=== PATIENT | male | born 1950 | race Caucasian/White ===

== ENCOUNTER 2018-08-17 14:04 | Day surgery (SDC) | payer MEDICARE, OTHER, SELFPAY ==
[2018-08-17] MEDS: LACTATED RINGERS 1,000 ML 200 ML IV (14:55)
[2018-08-17 15:02] VITALS: BP 135/81; PULSE 81; RESP 16; TEMP 36.9; O2SAT 97; BMI 30.7
--- NOTE | 2018-08-17 15:45 | PM.HP.1 ---
History of Present Illness Date Patient Seen: 08/17/18 Time Patient Seen: 15:46 Chief complaint: [id number] Colonoscopy Narrative: 68yo M for screening colonoscopy. Had one 10 years ago. No family history, no symptoms other than occasional BRB but he has hemorrhoids. Patient History Social History household members: spouse Family & Social History Social History: household members spouse Meds Home Medications Medication Instructions Recorded Confirmed Type ascorbate [id number] [Vitamin 1,000 mg PO DAILY 08/17/18 08/17/18 History C] aspirin [Aspir-81] 81 mg PO DAILY 08/17/18 08/17/18 History flaxseed oil 1,000 mg PO DAILY 08/17/18 08/17/18 History garlic 1,000 mg PO QPC 08/17/18 08/17/18 History glucosamine sulfate [Glucosamine] 500 mg PO BID 08/17/18 08/17/18 History lysine [L-Lysine] 1,000 mg PO DAILY 08/17/18 08/17/18 History methimazole 5 mg PO DAILY 08/17/18 08/17/18 History multivit-folic yyff-kfpe-unm C 1 caplet PO DAILY 08/17/18 08/17/18 History quinapril-hydrochlorothiazide 1 tab PO DAILY 08/17/18 08/17/18 History sildenafil [Viagra] 50 mg PO DAILY PRN 08/17/18 08/17/18 History simvastatin 40 mg PO QPM 08/17/18 08/17/18 History testosterone 2 packet TRANSDERMAL QAM 08/17/18 08/17/18 History Allergies Allergy/AdvReac Type Severity Reaction Status Date / Time Sulfa (Sulfonamide Allergy Unknown Verified 08/17/18 14:47 Antibiotics) Review of Systems Constitutional Constitutional: Reports as per HPI Exam Vital Signs (past 8 hours): - 08/17/18 15:02 Temperature 98.5 F Pulse Rate 81 Respiratory Rate 16 Blood Pressure 135/81 Pulse Oximetry 97 Oxygen Delivery Method Room Air Narrative Exam Narrative: AAO, NAD EOMI, MMM unlabored RA soft, nt/nd MAEW Assessment & Plan (1) Screening for colorectal cancer: Current visit: Yes Status: Acute Assessment & Plan narrative: - low risk screening colonoscopy --> all R/B/A discussed and pt wishes to proceed
--- NOTE | 2018-08-17 15:48 | P.HP_ITS ---
History of Present Illness Date Patient Seen: 08/17/18 Time Patient Seen: 15:46 Chief complaint: [id number] Colonoscopy Narrative: 68yo M for screening colonoscopy. Had one 10 years ago. No family history, no symptoms other than occasional BRB but he has hemorrhoids. Patient History Social History household members: spouse Family & Social History Social History: household members spouse Meds Home Medications Medication Instructions Recorded Confirmed Type ascorbate Ch-[id number]-[id number] [Vitamin 1,000 mg PO DAILY 08/17/18 08/17/18 History C] aspirin [Aspir-81] 81 mg PO DAILY 08/17/18 08/17/18 History flaxseed oil 1,000 mg PO DAILY 08/17/18 08/17/18 History garlic 1,000 mg PO QPC 08/17/18 08/17/18 History glucosamine sulfate [Glucosamine] 500 mg PO BID 08/17/18 08/17/18 History lysine [L-Lysine] 1,000 mg PO DAILY 08/17/18 08/17/18 History methimazole 5 mg PO DAILY 08/17/18 08/17/18 History multivit-folic wemy-jmgp-wta C 1 caplet PO DAILY 08/17/18 08/17/18 History quinapril-hydrochlorothiazide 1 tab PO DAILY 08/17/18 08/17/18 History sildenafil [Viagra] 50 mg PO DAILY PRN 08/17/18 08/17/18 History simvastatin 40 mg PO QPM 08/17/18 08/17/18 History testosterone 2 packet TRANSDERMAL QAM 08/17/18 08/17/18 History Allergies Allergy/AdvReac Type Severity Reaction Status Date / Time Sulfa (Sulfonamide Allergy Unknown Verified 08/17/18 14:47 Antibiotics) Review of Systems Constitutional Constitutional: Reports as per HPI Exam Vital Signs (past 8 hours): - 08/17/18 15:02 Temperature 98.5 F Pulse Rate 81 Respiratory Rate 16 Blood Pressure 135/81 Pulse Oximetry 97 Oxygen Delivery Method Room Air Narrative Exam Narrative: AAO, NAD EOMI, MMM unlabored RA soft, nt/nd MAEW Assessment & Plan (1) Screening for colorectal cancer: Current visit: Yes Status: Acute Assessment & Plan narrative: - low risk screening colonoscopy --> all R/B/A discussed and pt wishes to proceed
[2018-08-17] MEDS: fentaNYL 250 MCG/5 ML INJ IV (16:10)
[2018-08-17] MEDS: MIDAZOLAM 5 MG/5 ML VIAL IV (16:10)
[2018-08-17 16:18] VITALS: BP 120/92; PULSE 98; RESP 14; TEMP 36.6; O2SAT 94
[2018-08-17 16:23] VITALS: BP 120/92; PULSE 85; RESP 12; O2SAT 96
[2018-08-17 16:27] VITALS: BP 124/75; PULSE 78; RESP 16; TEMP 36.6; O2SAT 94
[2018-08-17 16:45] VITALS: BP 107/66; PULSE 69; RESP 18; O2SAT 93
--- NOTE | 2018-08-18 09:23 | PM.OP.ENDO ---
Operative Date/Time/Diagnoses Date of procedure: 08/17/18 Time of procedure: 16:23 Pre-op diagnosis: low risk screening colonoscopy Post-op diagnosis: same Procedure & Clinicians Study performed: low risk screening colonoscopy Same procedure as scheduled: Yes Indications: low risk screening for CRC Surgeon: Cathy Avila Procedure Notes SCOAP/Timeout: 15:54 Procedure in detail: After obtaining informed consent, the patient was brought to the GI suite and placed in the left lateral decubitus position on the examination table. After placement of appropriate monitors, the patient was given incremental doses of Versed and Fentanyl until an appropriate level of sedation was achieved. A time out was held per SCOAP protocol. A digital rectal examination was performed and did not reveal any masses or obstructing lesions but a prominent prostate was palpated. The colonoscope was gently passed into the patient's anus and the entire colon navigated to the level of the cecum with minimal difficulty. Prep was adequate. Once in the cecum, the scope was slowly withdrawn being sure to go before and beyond all mucosal folds and prominences as able to get a thorough examination. No masses or polyps are noted. Other findings include diverticulosis. At the level of the rectal vault, the scope was retroflexed and the internal anal canal was examined. The scope was straightened and air aspirated from the colon. The instrument was removed from the patient's body and the procedure was concluded. The patient was allowed to awaken from sedation without difficulty and taken to the post-anesthesia care unit in good condition. Scope withdrawal time: >6 min Sedation minutes: 18 Findings: diverticulosis (scattered) Specimen(s): none sent Complications: none Impression: Diverticulosis Recommendations: Colonscopy in 10 years and High fiber diet Follow up: as needed Disposition: PACU
== END 2018-08-17 17:00 | disposition home or self-care (01) ==
PROVIDERS: PCP Internal Medicine; Visit Provider Surgery
PROC: 0DJD8ZZ Inspection of Lower Intestinal Tract, Via Natural or Artificial Opening Endoscopic (ICD-10-PCS; CPT 45378; principal; 2018-08-17 16:00)
DX: Z12.11 Encounter for screening for malignant neoplasm of colon (principal); K57.30 Diverticulosis of large intestine without perforation or abscess without bleeding; K64.8 Other hemorrhoids
CPT/HCPCS: G0121; 99152; J2250; J3010

== ENCOUNTER → 2019-02-13 09:45 | Outpatient (CLI) | payer MEDICARE, OTHER, SELFPAY ==
[2019-02-13 10:28] LABS: 585 Gram Check PASS; Dizziness NO; Postdiastolic BP 90; Postsystolic BP 141; Prediastolic 92; Presystolic 160; Pulse 100; Site of phlebotomy RAC; Swelling NO; Therapeutic Phleb Comment NO COMMENT; Zero Check Sebra Scale PASS
== END ==
PROVIDERS: PCP Internal Medicine
DX: D75.1 Secondary polycythemia (principal)
CPT/HCPCS: 99195

== ENCOUNTER → 2019-02-27 10:31 | Outpatient (CLI) | payer MEDICARE, OTHER, SELFPAY ==
--- NOTE | 2019-02-27 | DI.US.S_ITS ---
PROCEDURE: US THYROID INDICATIONS: THYROTOXICOSIS WITH DIFFUSE GOITER TECHNIQUE: Real-time scanning was performed of the thyroid gland, with image documentation. COMPARISON: None. FINDINGS: Right: Thyroid lobe measures 3.6 x 2.0 x 1.2 cm, and is homogeneous in echotexture. 6 mm calcification. Left: Thyroid lobe measures 3.1 x 1.6 x 1.3 cm, and is homogenous in echotexture. 1.1 cm calcification. Isthmus: 3.0 mm thick. Nodule number: 1 Location: Right inferior Size: 0.7 x 0.7 x 1.0 cm. Composition: Predominantly solid Echogenicity: Hyperechoic Shape: wider than tall. Margins: Smooth Echogenic foci: None Total points: 3 ACR TI-RADS category: Mildly suspicious Nodule number: 2 Location: Right mid inferior Size: 0.7 x 0.6 x 0.6 cm. Composition: Solid Echogenicity: Isoechoic Shape: wider than tall. Margins: Smooth Echogenic foci: None Total points: 3 ACR TI-RADS category: Mildly suspicious Nodule number: 3 Location: Right superior Size: 0.5 x 0.6 x 0.8 cm. Composition: Solid Echogenicity: Hyperechoic Shape: wider than tall. Margins: Smooth Echogenic foci: None Total points: 3 ACR TI-RADS category: Mildly suspicious IMPRESSION: Right thyroid nodules as above. Recommend continued followup ultrasound as detailed below. ACR TI-RADS definitions and recommendations: TI-RADS 1 (benign): 0 points. FNA not needed. TI-RADS 2 (not suspicious): 2 points. FNA not needed. TI-RADS 3 (mildly suspicious): 3 points. * FNA if 2.5 cm or larger, follow up if 1.5 cm or larger (at 1, 3, and 5 years). TI-RADS 4 (moderately suspicious): 4-6 points. * FNA if 1.5 cm or larger, follow up if 1 cm or larger (at 1, 2, 3, and 5 years). TI-RADS 5 (highly suspicious): 7 points or more. * FNA if 1 cm or larger, follow up if 0.5 cm or larger (every year for 5 years). Dictated by: Kingsley PALACIO Interpreted: Jania Moy MD on 02/27/2019 at 12:11 Approved by: Jania Moy M.D. on 02/27/2019 at 13:34
== END ==
PROVIDERS: PCP Internal Medicine; Visit Provider Internal Medicine
DX: E05.20 Thyrotoxicosis with toxic multinodular goiter without thyrotoxic crisis or storm (principal)
CPT/HCPCS: 76536

== ENCOUNTER → 2019-04-10 09:57 | Outpatient (CLI) | payer MEDICARE, OTHER, SELFPAY ==
[2019-04-10 10:21] LABS: Add Manual Diff / Slide Review NO; Basophils Absolute Auto 100 /uL (0-100); Basophils Percent Auto 0.9 % (0-2); Eosinophils Absolute Auto 200 /uL (0-450); Eosinophils Percent Auto 3.4 % (2-4); Hematocrit 54.4 % (41-53); Hemoglobin 18.7 g/dL (13.5-17.5); Lymphocytes Absolute Auto 1400 /uL (1100-4500); Lymphocytes Percent Auto 21.7 % (25-40); Mean Corpuscular HGB Conc 34.5 % (30-36); Mean Corpuscular Hemoglobin 32.1 PG (26-34); Mean Corpuscular Volume 93.2 fL (80-100); Monocytes Absolute Auto 600 /uL (0-900); Monocytes Percent Auto 9.5 % (3-14); Neutrophils Absolute Auto 4000 /uL (1500-7000); Neutrophils Percent Auto 64.5 % (50-75); Platelet Count 165 X10^3/uL (150-400); Red Blood Cell Count 5.83 X10^6/uL (4.5-5.9); Red Cell Distribution Width 13.6 % (11.6-14.8); White Blood Cell Count 6.3 X10^3/uL (4.5-11.0)
[2019-04-10 10:48] LABS: 585 Gram Check PASS; Prediastolic 86; Presystolic 144; Pulse 93; Site of phlebotomy RAC; Zero Check Sebra Scale PASS
[2019-04-10 10:49] LABS: Amount Collected in g 454mL; Dizziness NO; Postdiastolic BP 81; Postsystolic BP 148; Swelling NO; Therapeutic Phleb Comment NO COMMENT
== END ==
PROVIDERS: PCP Internal Medicine
DX: D75.1 Secondary polycythemia (principal)
CPT/HCPCS: 36415; 85025; 99195

== ENCOUNTER → 2019-05-08 09:31 | Outpatient (CLI) | payer MEDICARE, OTHER, SELFPAY ==
[2019-05-08 10:09] LABS: Add Manual Diff / Slide Review NO; Basophils Absolute Auto 0 /uL (0-100); Basophils Percent Auto 0.6 % (0-2); Eosinophils Absolute Auto 200 /uL (0-450); Eosinophils Percent Auto 3.3 % (2-4); Hematocrit 54.1 % (41-53); Hemoglobin 18.4 g/dL (13.5-17.5); Lymphocytes Absolute Auto 1400 /uL (1100-4500); Lymphocytes Percent Auto 18.1 % (25-40); Mean Corpuscular HGB Conc 34.1 % (30-36); Mean Corpuscular Hemoglobin 31.3 PG (26-34); Mean Corpuscular Volume 91.9 fL (80-100); Monocytes Absolute Auto 600 /uL (0-900); Monocytes Percent Auto 7.5 % (3-14); Neutrophils Absolute Auto 5300 /uL (1500-7000); Neutrophils Percent Auto 70.5 % (50-75); Platelet Count 181 X10^3/uL (150-400); Red Blood Cell Count 5.88 X10^6/uL (4.5-5.9); Red Cell Distribution Width 13.3 % (11.6-14.8); White Blood Cell Count 7.5 X10^3/uL (4.5-11.0)
[2019-05-08 10:23] LABS: 585 Gram Check PASS; Dizziness NO; Postdiastolic BP 83; Postsystolic BP 123; Prediastolic 90; Presystolic 143; Pulse 109; Site of phlebotomy RAC; Swelling NO; Therapeutic Phleb Comment NO COMMENT; Zero Check Sebra Scale PASS
== END ==
PROVIDERS: PCP Internal Medicine
DX: D75.1 Secondary polycythemia (principal)
CPT/HCPCS: 36415; 85025; 99195

== ENCOUNTER → 2019-05-22 11:17 | Outpatient (CLI) | payer MEDICARE, OTHER, SELFPAY | PROVIDERS: PCP Internal Medicine | DX: E04.2 Nontoxic multinodular goiter (principal); Z53.9 Procedure and treatment not carried out, unspecified reason ==

== ENCOUNTER → 2019-06-05 09:38 | Outpatient (CLI) | payer MEDICARE, OTHER, SELFPAY ==
[2019-06-05 10:13] LABS: Add Manual Diff / Slide Review NO; Basophils Absolute Auto 0 /uL (0-100); Basophils Percent Auto 0.8 % (0-2); Eosinophils Absolute Auto 200 /uL (0-450); Eosinophils Percent Auto 4.1 % (2-4); Hematocrit 51.1 % (41-53); Hemoglobin 17.3 g/dL (13.5-17.5); Lymphocytes Absolute Auto 1300 /uL (1100-4500); Lymphocytes Percent Auto 23.9 % (25-40); Mean Corpuscular HGB Conc 33.8 % (30-36); Mean Corpuscular Hemoglobin 30.5 PG (26-34); Mean Corpuscular Volume 90.4 fL (80-100); Monocytes Absolute Auto 500 /uL (0-900); Monocytes Percent Auto 8.9 % (3-14); Neutrophils Absolute Auto 3300 /uL (1500-7000); Neutrophils Percent Auto 62.3 % (50-75); Platelet Count 173 X10^3/uL (150-400); Red Blood Cell Count 5.65 X10^6/uL (4.5-5.9); Red Cell Distribution Width 13.5 % (11.6-14.8); White Blood Cell Count 5.3 X10^3/uL (4.5-11.0)
[2019-06-05 11:54] LABS: 585 Gram Check PASS; Prediastolic 83; Presystolic 144; Pulse 86; Site of phlebotomy RAC; Zero Check Sebra Scale PASS
[2019-06-05 11:55] LABS: Dizziness NO; Postdiastolic BP 85; Postsystolic BP 131; Swelling NO; Therapeutic Phleb Comment NO COMMENT
== END ==
PROVIDERS: PCP Internal Medicine; Referring Provider Internal Medicine Hematology & Oncology; Visit Provider Internal Medicine Hematology & Oncology
DX: D75.1 Secondary polycythemia (principal)
CPT/HCPCS: 85025; 99195

== ENCOUNTER → 2020-05-22 12:11 | Outpatient (CLI) | payer MEDICARE, OTHER, SELFPAY ==
--- NOTE | 2020-05-22 12:15 | DI.RAD.S_ITS ---
PROCEDURE: XR KNEE LT 3V INDICATIONS: PAIN IN LEFT KNEE TECHNIQUE: 3 views of the knee were acquired. COMPARISON: None. FINDINGS: Bones: No fractures or dislocations. No suspicious bony lesions. Severe narrowing of the medial femoral tibial joint and tricompartmental periarticular osteophyte formation. Soft tissues: Small joint effusion. No suspicious soft tissue calcifications. 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 Dictated by: Kingsley Tellez [facility] Interpreted: David Toth MD on 05/22/2020 at 15:27 Approved by: David Toth M.D. on 05/22/2020 at 17:00
--- NOTE | 2020-05-22 12:15 | DI.RAD.S_ITS ---
PROCEDURE: XR CERVICAL SPINE 2V OR 3V INDICATIONS: NECK PAIN TECHNIQUE: 3 view(s) of the cervical spine were acquired. COMPARISON: None. FINDINGS: Bones: No fractures or dislocations to the T1 level. The lateral masses of C1 appear intact on the odontoid view. No suspicious bony lesions. Loss of lordosis which could be related to muscle spasm, rigidity or simply positional. Disc spacers noted at the C5-C6 and C6-C7 levels mild multilevel mid and lower cervical spine facet joint arthropathy and uncovertebral hypertrophy. Soft tissues: Vascular calcifications indicate atherosclerosis. Impression: 1. Disc spacer devices at the C5-C6 and C6-C7 level. 2. Loss of lordosis and multilevel spondylosis. Dictated by: Kingsley Tellez [facility] Interpreted: David Toth MD on 05/22/2020 at 15:25 Approved by: David Toth M.D. on 05/22/2020 at 17:00
--- NOTE | 2020-05-22 12:15 | DI.RAD.S_ITS ---
PROCEDURE: XR CHEST 2V INDICATIONS: EXPOSURE TO ASBESTOS TECHNIQUE: 2 views of the chest were acquired. COMPARISON: None. FINDINGS: Surgical changes and devices: None. Lungs and pleura: Lungs are clear, aside from mild atelectasis versus scarring involving the left lung base. No pleural effusions or pneumothorax. Mediastinum: Mediastinal contours are normal. Heart size is normal. Bones and chest wall: No suspicious bony abnormalities. Soft tissues appear unremarkable. IMPRESSION: No acute cardiopulmonary disease. Dictated by: Kingsley Tellez [facility] Interpreted: David Toth MD on 05/22/2020 at 14:57 Approved by: David Toth M.D. on 05/22/2020 at 15:05
--- NOTE | 2020-05-22 12:15 | DI.RAD.S_ITS ---
PROCEDURE: XR KNEE RT 3V INDICATIONS: PAIN IN RIGHT KNEE TECHNIQUE: 3 views of the knee were acquired. COMPARISON: None. FINDINGS: Bones: No fractures or dislocations. No suspicious bony lesions. Severe narrowing of the medial femoral tibial joint and tricompartmental periarticular osteophyte formation. Soft tissues: Small joint effusion. No suspicious soft tissue calcifications. IMPRESSION: Small joint effusion and tricompartmental knee joint degeneration, severe involving the medial femorotibial joint. Dictated by: Kingsley Tellez [facility] Interpreted: David Toth MD on 05/22/2020 at 15:28 Approved by: David Toth M.D. on 05/22/2020 at 17:00
== END ==
PROVIDERS: PCP Internal Medicine; Referring Provider Internal Medicine; Visit Provider Internal Medicine
DX: Z77.090 Contact with and (suspected) exposure to asbestos (principal); M54.2 Cervicalgia; M47.812 Spondylosis without myelopathy or radiculopathy, cervical region; M17.0 Bilateral primary osteoarthritis of knee; M25.562 Pain in left knee; M25.561 Pain in right knee; M25.461 Effusion, right knee; M25.462 Effusion, left knee
CPT/HCPCS: 71046; 72040; 73562